=== PATIENT | female | born 1980 | race Caucasian/White ===

== ENCOUNTER 2018-04-30 21:32 | Inpatient (IN) | payer OTHER ==
[~2018-04-30] VITALS: Ht 154.9 cm; Wt 93.4 kg
[2018-04-30] MEDS ORDERED: OXYTOCIN 20 UNITS/LACT RINGERS 1,000 ML IV ONE (21:46)
[2018-04-30] MEDS ORDERED: OXYTOCIN 30 UNITS/LACT RINGERS 500 ML IV PRN (21:46)
[2018-04-30] MEDS ORDERED: TERBUTALINE SULFATE 1 MG/ML VIAL SQ PRN (22:00)
[2018-04-30] MEDS ORDERED: CITRIC ACID/SODIUM CITRATE 30 ML SOLUTION UDCUP PO PRN (22:00)
[2018-04-30] MEDS ORDERED: AMPICILLIN SODIUM 2 GM/NS 100 ML IV ONE (22:00)
[2018-04-30] MEDS ORDERED: LIDOCAINE/PF 1% 30 ML VIAL INJ PRN (22:00)
[2018-04-30] MEDS ORDERED: FentaNYL CITRATE-PF 100 MCG/2 ML VIAL IVP PRN (22:00)
[2018-04-30] MEDS ORDERED: METOCLOPRAMIDE HCL 5 MG/ML 2 ML VIAL IVP PRN (22:00)
[2018-04-30 22:16] LABS: BASOPHILS % (AUTO) 0.6 % (0.0-2.0); EOSINOPHILS % (AUTO) 0.3 % (1.0-6.0); HEMATOCRIT 37.8 % (36-46); HEMOGLOBIN 13.2 g/dL (12.0-16.0); LYMPHOCYTES # (AUTO) 2.4 K/uL (1.0-4.8); LYMPHOCYTES % (AUTO) 22.1 % (22.0-44.0); MEAN CORPUSCULAR HEMOGLOBIN 30.5 pg (26.0-34.0); MEAN CORPUSCULAR HGB CONC 34.8 G/dL (31.0-37.0); MEAN CORPUSCULAR VOLUME 88 fL (80-100); MONOCYTES # (AUTO) 0.6 K/uL (0.1-1.0); MONOCYTES % (AUTO) 5.5 % (2.0-9.0); NEUTROPHILS # (AUTO) 7.8 K/uL (1.8-7.7); NEUTROPHILS % (AUTO) 71.5 % (40.0-70.0); PLATELET COUNT (AUTO)-OB 205 K/uL (150-450); RED BLOOD CELL COUNT(AUTO) 4.32 MIL/uL (4.00-5.20); RED CELL DISTRIBUTION WIDTH 13.2 % (11.5-14.5)
[2018-04-30] MEDS: RINGERS SOLUTION,LACTATED 1,000 ML IV SCH ×2 (22:27→22:52)
[2018-04-30] MEDS ORDERED: LIDOCAINE/PF 2% 5 ML VIAL ONE (22:32)
[2018-04-30] MEDS ORDERED: ROPIVACAINE HCL/PF 0.2% 100 ML ED ONE (22:32)
[2018-04-30 22:47] VITALS: BP 136/85
[2018-04-30] MEDS ORDERED: NALBUPHINE HCL 10 MG/ML VIAL IVP PRN (23:00)
[2018-04-30] MEDS ORDERED: DiphenhydrAMINE HCL 50 MG/ML VIAL IVP PRN (23:00)
[2018-04-30] MEDS ORDERED: ONDANSETRON HCL 4 MG/2 ML VIAL IVP PRN (23:00)
[2018-04-30] MEDS ORDERED: ROPIVACAINE HCL/PF 0.2% 100 ML ED PRN (23:00)
[2018-05-01] MEDS ORDERED: PNV11TAB PO (00:21)
[2018-05-01] MEDS: RINGERS SOLUTION,LACTATED 1,000 ML IV SCH (01:58)
[2018-05-01] MEDS ORDERED: AMPICILLIN SODIUM 1 GM/NS 50 ML IV SCH (02:00)
[2018-05-01] MEDS ORDERED: KETOROLAC TROMETHAMINE 30 MG/ML VIAL IVP ONE (05:20)
[2018-05-01] MEDS ORDERED: RINGERS SOLUTION,LACTATED 1,000 ML IV ONE (05:35)
[2018-05-01] MEDS ORDERED: BENZOCAINE 20%/MENTHOL 56 GM SPRAY CANISTER TP PRN (05:45)
[2018-05-01] MEDS ORDERED: OxyCODONE HCL/ACETAMINOPHEN 5-325 MG TABLET PO PRN ×2 (05:45)
[2018-05-01] MEDS ORDERED: LANOLIN 7 GM OINTMENT TP PRN (05:45)
[2018-05-01] MEDS ORDERED: GLYCERIN/WITCH HAZEL LEAF 40 PADS JAR TP PRN (05:45)
[2018-05-01] MEDS: OXYGEN THERAPY IH SCH ×2 (06:46→21:34)
[2018-05-01] MEDS: MAGNESIUM HYDROXIDE SUSPENSION 30 ML UDCUP PO SCH ×2 (10:39→20:42)
[2018-05-01] MEDS: IBUPROFEN 600 MG TABLET PO PRN ×2 (12:22→20:42)
[2018-05-02] MEDS: IBUPROFEN 600 MG TABLET PO PRN (06:03)
[2018-05-02 06:26] LABS: BASOPHILS % (AUTO) 0.2 % (0.0-2.0); EOSINOPHILS % (AUTO) 0.3 % (1.0-6.0); HEMATOCRIT 35.6 % (36-46); HEMOGLOBIN 12.2 g/dL (12.0-16.0); MEAN CORPUSCULAR HEMOGLOBIN 30.8 pg (26.0-34.0); MEAN CORPUSCULAR HGB CONC 34.3 G/dL (31.0-37.0); MEAN CORPUSCULAR VOLUME 90 fL (80-100); MONOCYTES # (AUTO) 0.7 K/uL (0.1-1.0); MONOCYTES % (AUTO) 3.9 % (2.0-9.0); NEUTROPHILS # (AUTO) 13.1 K/uL (1.8-7.7); NEUTROPHILS % (AUTO) 77.6 % (40.0-70.0); PLATELET COUNT (AUTO)-OB 183 K/uL (150-450); RED BLOOD CELL COUNT(AUTO) 3.96 MIL/uL (4.00-5.20)
[2018-05-02] MEDS ORDERED: IBUP-2071 PO (09:49)
[2018-05-02] MEDS ORDERED: DSS100 PO (09:50)
== END 2018-05-02 10:20 | disposition home or self-care (01) | DRG 807 ==
LOC: 4S 21:32 → OBSVTOIN 21:32
PROVIDERS: ADMIT Obstetrics & Gynecology; ATTEND Obstetrics & Gynecology
PROC: 10E0XZZ Delivery of Products of Conception, External Approach (ICD-10-PCS; principal; 2018-05-01)
PROC: 0HQ9XZZ Repair Perineum Skin, External Approach (ICD-10-PCS; 2018-05-01)
PROC: 3E0R3BZ Introduction of Anesthetic Agent into Spinal Canal, Percutaneous Approach (ICD-10-PCS; 2018-05-01)
PROC: 00HU33Z Insertion of Infusion Device into Spinal Canal, Percutaneous Approach (ICD-10-PCS; 2018-05-01)
PROC: 3E02340 Introduction of Influenza Vaccine into Muscle, Percutaneous Approach (ICD-10-PCS; 2018-05-01)
DX: O77.0 Labor and delivery complicated by meconium in amniotic fluid (principal); Z37.0 Single live birth; O70.0 First degree perineal laceration during delivery; Z3A.41 41 weeks gestation of pregnancy; Z23 Encounter for immunization; O09.513 Supervision of elderly primigravida, third trimester
CPT/HCPCS: 86850; 86900; 86901; 90686; J0290; J1885; J2590; J2795; J3490; J7120